=== PATIENT | female | born 1945 | race Caucasian/White ===

== ENCOUNTER 2017-10-09 06:58 | Day surgery (SDC) | payer MEDICARE ==
[~2017-10-09] VITALS: Ht 157.5 cm; Wt 59.9 kg
[~2017-10-09 06:58] MED LIST: ALENDRONATE70 MG PO; LORTAB 1010 MG PO; METAMUCIL28 % PO; MULTI VIT PO
[2017-10-09 10:00] VITALS: BP 96/68
== END 2017-10-09 11:00 | disposition home or self-care (01) ==
LOC: ENDO 06:58
PROVIDERS: ATTEND Internal Medicine Gastroenterology
PROC: 0DBK8ZX Excision of Ascending Colon, Via Natural or Artificial Opening Endoscopic, Diagnostic (ICD-10-PCS; principal; 2017-10-09)
PROC: 3E0H8GC Introduction of Other Therapeutic Substance into Lower GI, Via Natural or Artificial Opening Endoscopic (ICD-10-PCS; 2017-10-09)
DX: Z12.11 Encounter for screening for malignant neoplasm of colon (principal); D12.2 Benign neoplasm of ascending colon; K64.4 Residual hemorrhoidal skin tags; K57.30 Diverticulosis of large intestine without perforation or abscess without bleeding; K64.8 Other hemorrhoids; E78.00 Pure hypercholesterolemia, unspecified

== ENCOUNTER 2022-08-08 07:12 | Emergency (ER) | payer MEDICARE ==
[2022-08-08] VITALS (19 sets, daily range): BP systolic 165–200; BP diastolic 106–128
[~2022-08-08] VITALS: Ht 157.5 cm; Wt 65.7 kg
[2022-08-08] MEDS ORDERED: ATORVASTATIN CA1 POW (07:30)
[2022-08-08 07:44] LABS: HEMATOCRIT 47.8 % (37.0-47.0); HEMOGLOBIN 15.7 g/dl (12.0-16.0); IMMATURE GRANULOCYTES 0.1 % (0.0-5.0); MEAN CELL VOLUME 92.5 fL CALC (80.0-100.0); MEAN CORPUSCULAR HGB 30.4 pG CALC (26.0-32.0); MEAN CORPUSCULAR HGB CONC 32.8 g/dL CAL (32.0-36.0); NEUT# 4.82 thou/uL (2.00-7.15); RED BLOOD COUNT 5.17 mill/uL (4.20-5.60); RED CELL DISTRI WIDTH 13.8 % (11.5-15.5)
[2022-08-08 08:03] LABS: ALBUMIN 4.1 g/dL (3.2-5.0); ALKALINE PHOSPHATASE 69 u/l (38-126); BUN 12 mg/dL (8-23); BUN/CREATININE RATIO 15 (12-20 (CALC)); CARBON DIOXIDE 27 mmol/l (22-30); CHLORIDE 104 mmol/l (95-108); CREATININE 0.8 mg/dL (0.5-1.0); GFR FOR AFR.AMER. > 60 ML/MIN (>=60 (CALC)); GFR OTHER RACES > 60 ML/MIN (>=60 (CALC)); SGOT/AST 37 u/l (9-36); SODIUM 138 mmol/l (137-146); TOTAL PROTEIN 7.5 g/dL (6.3-8.2)
[2022-08-08 08:08] LABS: ANION GAP 10 (6-22 (CALC)); BILIRUBIN, TOTAL 0.9 mg/dL (0.0-1.4); POTASSIUM 3.1 mmol/l (3.5-5.1)
[2022-08-08] MEDS ORDERED: AMLODIPINE BESY10 MG PO (10:08)
[2022-08-09] MEDS ORDERED: AMLODIPINE BESY10 MG PO (09:28)
== END 2022-08-08 11:05 | disposition home or self-care (01) ==
LOC: ED 07:12
PROVIDERS: Family Medicine
DX: R51.9 Headache, unspecified (principal); I10 Essential (primary) hypertension; E78.00 Pure hypercholesterolemia, unspecified; F17.200 Nicotine dependence, unspecified, uncomplicated

== ENCOUNTER 2022-08-09 12:18 | Emergency (ER) | payer MEDICARE ==
[~2022-08-09] VITALS: Ht 157.5 cm; Wt 77.2 kg
[2022-08-09] VITALS (41 sets, daily range): BP systolic 142–194; BP diastolic 89–123
[~2022-08-09 12:18] MED LIST changes: +AMLODIPINE BESY10 MG PO; +ATORVASTATIN CA1 POW
[2022-08-09 12:42] LABS: HEMATOCRIT 49.8 % (37.0-47.0); HEMOGLOBIN 16.6 g/dl (12.0-16.0); IMMATURE GRANULOCYTES 0.2 % (0.0-5.0); MEAN CELL VOLUME 92.1 fL CALC (80.0-100.0); MEAN CORPUSCULAR HGB 30.7 pG CALC (26.0-32.0); MEAN CORPUSCULAR HGB CONC 33.3 g/dL CAL (32.0-36.0); NEUT# 7.12 thou/uL (2.00-7.15); RED BLOOD COUNT 5.41 mill/uL (4.20-5.60); RED CELL DISTRI WIDTH 13.7 % (11.5-15.5)
[2022-08-09 12:54] LABS: INTERNATIONAL NORMALIZED RATIO 1.1 RATIO (0.7-1.3); PROTHROMBIN TIME 10.6 SECONDS (9.0-12.5)
[2022-08-09 12:56] LABS: ALBUMIN 4.6 g/dL (3.2-5.0); ALKALINE PHOSPHATASE 75 u/l (38-126); ANION GAP 13 (6-22 (CALC)); BILIRUBIN, TOTAL 0.9 mg/dL (0.0-1.4); BUN 15 mg/dL (8-23); BUN/CREATININE RATIO 18 (12-20 (CALC)); CARBON DIOXIDE 28 mmol/l (22-30); CHLORIDE 102 mmol/l (95-108); CREATININE 0.8 mg/dL (0.5-1.0); GFR FOR AFR.AMER. > 60 ML/MIN (>=60 (CALC)); GFR OTHER RACES > 60 ML/MIN (>=60 (CALC)); POTASSIUM 3.5 mmol/l (3.5-5.1); SGOT/AST 47 u/l (9-36); SODIUM 140 mmol/l (137-146); TOTAL PROTEIN 8.4 g/dL (6.3-8.2)
[2022-08-09 19:49] LABS: URINE BILIRUBIN - DIPSTICK NEGATIVE (NEGATIVE); URINE BLOOD DIPSTICK TRACE-INTACT (NEGATIVE); URINE COLOR YELLOW; URINE GLUCOSE - DIPSTICK NEGATIVE (NEGATIVE); URINE KETONE NEGATIVE (NEGATIVE); URINE LEUK ESTERASE NEGATIVE (NEGATIVE); URINE PH 7.5 (4.5-8.0); URINE PROTEIN - DIPSTICK NEGATIVE (NEG-TRACE); URINE UROBILINOGEN - DIPSTICK 0.2 E.U./dL (0.2)
[2022-08-09 19:50] LABS: URINE NITRITE - DIPSTICK NEGATIVE (Negative)
[2022-08-10 00:01] VITALS: BP 179/102
== END 2022-08-10 00:15 | disposition short-term general hospital (02) ==
LOC: ED 12:18
PROVIDERS: Family Medicine
DX: G45.9 Transient cerebral ischemic attack, unspecified (principal); R51.9 Headache, unspecified; I65.21 Occlusion and stenosis of right carotid artery; I10 Essential (primary) hypertension; E78.00 Pure hypercholesterolemia, unspecified; M19.90 Unspecified osteoarthritis, unspecified site; Z20.822 Contact with and (suspected) exposure to COVID-19
CPT/HCPCS: Q9967

== ENCOUNTER 2022-08-17 14:41 | Emergency (ER) | payer MEDICARE ==
[~2022-08-17] VITALS: Ht 157.5 cm; Wt 75.0 kg
[2022-08-17] VITALS (7 sets, daily range): BP systolic 142–173; BP diastolic 81–94
[2022-08-17] MEDS ORDERED: LISINOPRIL5 MG PO (14:52)
[2022-08-17 15:11] LABS: HEMATOCRIT 50.5 % (37.0-47.0); HEMOGLOBIN 16.5 g/dl (12.0-16.0); IMMATURE GRANULOCYTES 0.3 % (0.0-5.0); MEAN CELL VOLUME 93.9 fL CALC (80.0-100.0); MEAN CORPUSCULAR HGB 30.7 pG CALC (26.0-32.0); MEAN CORPUSCULAR HGB CONC 32.7 g/dL CAL (32.0-36.0); NEUT# 8.03 thou/uL (2.00-7.15); RED BLOOD COUNT 5.38 mill/uL (4.20-5.60); RED CELL DISTRI WIDTH 13.7 % (11.5-15.5)
[2022-08-17 15:23] LABS: ALBUMIN 4.4 g/dL (3.2-5.0); ALKALINE PHOSPHATASE 85 u/l (38-126); ANION GAP 14 (6-22 (CALC)); BILIRUBIN, TOTAL 0.6 mg/dL (0.0-1.4); BUN 14 mg/dL (8-23); BUN/CREATININE RATIO 17 (12-20 (CALC)); CARBON DIOXIDE 27 mmol/l (22-30); CHLORIDE 103 mmol/l (95-108); CREATININE 0.8 mg/dL (0.5-1.0); GFR FOR AFR.AMER. > 60 ML/MIN (>=60 (CALC)); GFR OTHER RACES > 60 ML/MIN (>=60 (CALC)); POTASSIUM 4.2 mmol/l (3.5-5.1); SGOT/AST 34 u/l (9-36); SODIUM 139 mmol/l (137-146); TOTAL PROTEIN 8.2 g/dL (6.3-8.2)
[2022-08-17] MEDS ORDERED: IMITREX50 MG PO (16:19)
[2022-08-18] MEDS ORDERED: IMITREX50 MG PO (09:48)
== END 2022-08-17 16:50 | disposition home or self-care (01) ==
LOC: ED 14:41
PROVIDERS: Family Medicine
DX: R51.9 Headache, unspecified (principal); I10 Essential (primary) hypertension; E78.00 Pure hypercholesterolemia, unspecified

== ENCOUNTER 2024-03-09 07:06 | Day surgery (SDC) | payer MEDICARE ==
[~2024-03-09] VITALS: Ht 157.5 cm; Wt 66.7 kg
[~2024-03-09 07:06] MED LIST changes: +IMITREX50 MG PO; +LISINOPRIL5 MG PO
[2024-03-09] MEDS ORDERED: SODIUM CHLORIDE 0.9% 10 ML SYR ONE (07:11)
[2024-03-09] MEDS ORDERED: BUPIVACAINE HCL PF 0.5 % 50 MG/10 ML SDV ONE (09:00)
[2024-03-09] MEDS ORDERED: LIDOCAINE MPF 1% (10 MG/ML) 5 ML VIAL ONE (09:00)
[2024-03-09] MEDS ORDERED: TRIAMCINOLONE ACETONIDE 40 MG/ML ML ONE (09:00)
[2024-03-09] MEDS ORDERED: Iopamidol 61% 5 ML SYR IV ONE (09:02)
[2024-03-09 09:37] VITALS: BP 120/79
== END 2024-03-09 08:43 | disposition home or self-care (01) ==
LOC: ORM 07:06
PROVIDERS: ATTEND Student in an Organized Health Care Education/Training Program
DX: M70.62 Trochanteric bursitis, left hip (principal); M25.552 Pain in left hip; G89.4 Chronic pain syndrome; M47.816 Spondylosis without myelopathy or radiculopathy, lumbar region
CPT/HCPCS: J3301; Q9967

== ENCOUNTER 2024-04-20 06:24 | Day surgery (SDC) | payer MEDICARE ==
[~2024-04-20] VITALS: Ht 157.5 cm; Wt 63.5 kg
[2024-04-20] MEDS ORDERED: SODIUM CHLORIDE 0.9% 10 ML SYR ONE (06:30)
[2024-04-20] MEDS ORDERED: METOPROL TAR25 M1 PO (06:47)
[2024-04-20] MEDS ORDERED: PHENTERMINE HCL15 MG PO (06:47)
[2024-04-20] MEDS ORDERED: BAYER ASPIRIN E81 MG PO (06:48)
[2024-04-20] MEDS ORDERED: BUPIVACAINE HCL PF 0.5 % 50 MG/10 ML SDV ONE (07:51)
[2024-04-20] MEDS ORDERED: LIDOCAINE HCL 1% (10MG/ML) 100 MG/10 ML MDV ONE (07:51)
[2024-04-20] MEDS ORDERED: TRIAMCINOLONE ACETONIDE 40 MG/ML ML ONE (07:51)
[2024-04-20 08:26] VITALS: BP 108/66
== END 2024-04-20 08:14 | disposition home or self-care (01) ==
LOC: ORM 06:24
PROVIDERS: ATTEND Student in an Organized Health Care Education/Training Program
DX: G89.4 Chronic pain syndrome (principal); M79.18 Myalgia, other site; M70.62 Trochanteric bursitis, left hip; M47.816 Spondylosis without myelopathy or radiculopathy, lumbar region
CPT/HCPCS: J3301

== ENCOUNTER 2024-05-25 06:32 | Day surgery (SDC) | payer MEDICARE ==
[~2024-05-25] VITALS: Ht 157.5 cm; Wt 61.2 kg
[~2024-05-25 06:32] MED LIST changes: +BAYER ASPIRIN E81 MG PO; +METOPROL TAR25 M1 PO; +PHENTERMINE HCL15 MG PO
[2024-05-25] MEDS ORDERED: DEXAMETHASONE SODIUM PHOSPHATE PF 10 MG/ML SDV ONE (07:05)
[2024-05-25] MEDS ORDERED: LIDOCAINE HCL 1% (10MG/ML) 100 MG/10 ML MDV ONE (07:05)
[2024-05-25] MEDS ORDERED: SODIUM CHLORIDE 20 ML/VIAL SDV ONE (07:07)
[2024-05-25] MEDS ORDERED: Iopamidol 61% 5 ML SYR IV ONE (07:07)
[2024-05-25 08:28] VITALS: BP 107/70
== END 2024-05-25 08:12 | disposition home or self-care (01) ==
LOC: ORM 06:32
PROVIDERS: ATTEND Student in an Organized Health Care Education/Training Program
DX: G89.4 Chronic pain syndrome (principal); M54.16 Radiculopathy, lumbar region; M79.18 Myalgia, other site; M70.62 Trochanteric bursitis, left hip; M47.816 Spondylosis without myelopathy or radiculopathy, lumbar region; M48.062 Spinal stenosis, lumbar region with neurogenic claudication
CPT/HCPCS: J1100; Q9967

== ENCOUNTER 2024-09-28 06:56 | Day surgery (SDC) | payer MEDICARE ==
[~2024-09-28] VITALS: Ht 157.5 cm; Wt 57.6 kg
[2024-09-28] MEDS ORDERED: SODIUM CHLORIDE 0.9% 10 ML SYR ONE (07:24)
[2024-09-28] MEDS ORDERED: SODIUM CHLORIDE 20 ML/VIAL SDV ONE (09:30)
[2024-09-28] MEDS ORDERED: Iopamidol 61% 5 ML SYR IV ONE (09:30)
[2024-09-28] MEDS ORDERED: LIDOCAINE HCL 1% (10MG/ML) 100 MG/10 ML MDV ONE (09:33)
[2024-09-28 10:06] VITALS: BP 128/70
== END 2024-09-28 08:40 | disposition home or self-care (01) ==
LOC: ORM 06:56
PROVIDERS: ATTEND Student in an Organized Health Care Education/Training Program
DX: G89.4 Chronic pain syndrome (principal); M54.16 Radiculopathy, lumbar region
CPT/HCPCS: J1100; Q9967